=== PATIENT | male | born 1990 | race Hispanic/Latino ===

== ENCOUNTER 2017-10-19 20:04 | Emergency (ER) | payer SELFPAY ==
[2017-10-19] MEDS ORDERED: Ketorolac Tromethamine 30 MG/ML VIAL ONE (20:13)
--- NOTE | 2017-10-19 20:48 | RAD ---
THREE VIEWS LEFT SHOULDER: 10/19/17 HISTORY: Left shoulder pain. FINDINGS: There is a curvilinear osseous density seen inferior to the left glenoid rim. Unsure if this is relat ed to a small osteophyte or avulsion type injury. There is otherwise no evidence of a fracture or di slocation. The coracoclavicular and acromioclavicular distances are within normal limits. IMPRESSION: Curvilinear osseous density inferior to the left glenoid which may represent either a tiny osseous ex crescence or possibly secondary to an avulsion injury of indeterminate age. This cannot be further de termined based on this exam. There is no evidence of a dislocation or other osseous abnormality. POS: [facility]
== END 2017-10-19 20:52 | disposition home or self-care (01) ==
LOC: ERS 20:04
DX: S42.142A Displaced fracture of glenoid cavity of scapula, left shoulder, initial encounter for closed fracture (principal); F17.210 Nicotine dependence, cigarettes, uncomplicated; W19.XXXA Unspecified fall, initial encounter; Y92.69 Other specified industrial and construction area as the place of occurrence of the external cause; Y99.0 Civilian activity done for income or pay
CPT/HCPCS: 96372; J1885

== ENCOUNTER 2018-06-05 15:32 | Emergency (ER) | payer SELFPAY ==
[2018-06-05] MEDS ORDERED: Lidocaine 1% (PF) 30 ML VIAL ONE (15:50)
[2018-06-05] MEDS ORDERED: Fentanyl 100 MCG/2 ML VIAL ONE ×2 (15:50→16:22)
[2018-06-05] MEDS ORDERED: Ketorolac Tromethamine 30 MG/ML VIAL ONE (15:50)
--- NOTE | 2018-06-05 16:14 | RAD ---
RADIOGRAPH CHEST 1 VIEW: HISTORY: 28-year-old male with acute chest pain. FINDINGS: There are no air space densities, pulmonary edema, pneumothorax, or cardiomegaly. The lateral costop hrenic angles are sharp. There is anterior left shoulder dislocation. IMPRESSION: 1. No acute cardiopulmonary findings. 2. Acute, traumatic, anterior left shoulder dislocation of the glenohumeral joint. lazaro [] POS: [facility]
[2018-06-05] MEDS ORDERED: PROPOFOL 20 ML ONE (16:22)
--- NOTE | 2018-06-05 18:30 | RAD ---
RADIOGRAPH CHEST 1 VIEW: DATE: 06-05-18 TIME: 5:23 p.m. HISTORY: 28-year-old male with acute left shoulder dislocation. COMPARISON: 06-05-18 at 4:01 p.m. FINDINGS: There are no air space densities, pulmonary edema, pneumothorax, or cardiomegaly. The lateral costop hrenic angles are sharp. The left glenohumeral joint is now located. IMPRESSION: 1. No acute cardiopulmonary findings. 2. Successful reduction of the acute, traumatic, left shoulder anterior dislocation. lazaro POS: [facility]
== END 2018-06-05 18:49 | disposition home or self-care (01) ==
LOC: ERS 15:32
DX: S43.015A Anterior dislocation of left humerus, initial encounter (principal); F17.210 Nicotine dependence, cigarettes, uncomplicated; W18.30XA Fall on same level, unspecified, initial encounter
CPT/HCPCS: 23650; 71045; 96361; 96374; 99152; 99153; J1885; J2001; J2704; J3010

== ENCOUNTER 2019-06-25 05:23 | Emergency (ER) | payer SELFPAY ==
[2019-06-25] MEDS ORDERED: hydrOXYzine Pamoate 25 mg Capsule ONE (06:14)
--- NOTE | 2019-06-25 07:59 | RAD ---
RADIOGRAPH CHEST 2 VIEWS: DATE: 06/25/2019 HISTORY: 29-year-old male with dyspnea FINDINGS: The lungs are clear. The cardiomediastinal silhouette and hilar shadows appear normal. There is no pl eural effusion or pneumothorax. No osseous abnormality is identified. IMPRESSION: Normal
== END 2019-06-25 06:40 | disposition home or self-care (01) ==
LOC: ERS 05:23
DX: F41.9 Anxiety disorder, unspecified (principal); F17.210 Nicotine dependence, cigarettes, uncomplicated
CPT/HCPCS: 71046; 93005; Q0177

== ENCOUNTER 2019-06-25 12:06 | Observation (INO) | payer SELFPAY ==
--- NOTE | 2019-06-25 12:52 | RAD ---
Portable chest: HISTORY: Dizziness COMPARISON: none FINDINGS: Lung olivares are clear. Heart and mediastinum appear unremarkable. Vascularity is normal. Visualized osseous structures unremarkable. IMPRESSION: No acute finding
[2019-06-25 13:00] LABS: #Eosinphils 0.2 thou/uL (0.0-0.7); #Lymphocytes 1.7 thou/uL (1.20-3.40); #Neutrophils 5.6 thou/uL (1.40-6.50); %Basophils 0.4 % (0.0-1.0); %Lymphocytes 19.7 % (21.0-51.0); %Monocytes 11.9 % (0.0-10.0); Hemoglobin 16.4 g/dL (14.0-18.0); Mean Corpuscular HGB CONC 34.7 g/dL (32.0-36.0); Mean Corpuscular Hemoglobin 31.5 pg (27.0-31.0); Mean Corpuscular Volume 90.6 fL (78.0-98.0); Mean Platelet Volume 7.7 fL (7.4-10.4); Platelet Count 231 thou/uL (130-400); RBC Distribution Width 12.1 % (11.5-14.5); Red Blood Cell (RBC) Count 5.21 mill/uL (4.70-6.10); White Blood Cell (WBC) Count 8.5 thou/uL (4.8-10.8)
[2019-06-25 13:12] LABS: Acetaminophen Less than 6.0 mcg/mL (10.0-30.0); Alcohol Less than 10 mg/dL (Less than 10); Salicylate Less than 8.0 mg/dL (15.0-30.0)
[2019-06-25 13:13] LABS: ALT (SGPT) 12 U/L (8-55); AST (SGOT) 13 U/L (5-34); Albumin 4.5 g/dL (3.5-5.0); Alkaline Phosphatase 98 U/L (40-110); Anion Gap 14 mmol/L (10-20); BUN (Urea Nitrogen) 8 mg/dL (8.9-20.6); Bilirubin, Total 0.7 mg/dL (0.2-1.2); Calc. Creatinine Clearance 0 mL/min (70-130); Calcium 9.5 mg/dL (7.8-10.44); Carbon Dioxide 22 mmol/L (22-29); Chloride 103 mmol/L (98-107); Estimated GFR-MDRD Greater than 90; Globulin 2.8 g/dL (2.4-3.5); Glucose 111 mg/dL (70-105); Potassium 3.8 mmol/L (3.5-5.1); Protein, Total 7.3 g/dL (6.0-8.3); Sodium 135 mmol/L (136-145)
[2019-06-25 13:35] LABS: CKMB 0.8 ng/mL (0-6.6)
[2019-06-25] MEDS ORDERED: Aspirin Chewable 81 MG TAB ONE (13:47)
[2019-06-25] MEDS ORDERED: hydrOXYzine Pamoate 25 mg Capsule ONE (13:48)
[2019-06-25 14:18] LABS: Amphetamine Detected (NotDetected); Barbiturates Screen Not Detected (NotDetected); Benzodiazepine Screen Not Detected (NotDetected); Cocaine Metabolite Screen Detected (NotDetected); Medtox Control Line Valid? VALID (VALID); Medtox Reader # READER 1; Methadone Not Detected (NotDetected); Methamphetamine Detected (NotDetected); Opiate Screen Not Detected (NotDetected); Oxycodone Screen Not Detected (NotDetected); Phencyclidine (PCP) Not Detected (NotDetected); THC/Cannabinoid Screen Detected (NotDetected); Tricyclic Screen Not Detected (NotDetected)
[2019-06-25 16:27] LABS: Troponin I Less than 0.010 ng/mL (< 0.028)
[2019-06-25 18:54] LABS: Troponin I Less than 0.010 ng/mL (< 0.028)
[2019-06-25 20:23] VITALS: BMI 32.3
[2019-06-25] MEDS ORDERED: Ondansetron PF 4 MG/2 ML Vial IVP PRN (20:42)
[2019-06-25] MEDS ORDERED: Ondansetron ODT 4 MG TAB SL PRN (20:42)
[2019-06-25] MEDS ORDERED: Acetaminophen 325 MG TAB PO PRN (20:42)
[2019-06-26 07:56] VITALS: TEMP 97.6
[2019-06-26] MEDS ORDERED: FLU VACC QS2019-20(6MOS UP)/PF 60 MCG/0.5 ML SYRINGE IM ONE (09:00)
[2019-06-26] MEDS ORDERED: Acetaminophen 325 MG TAB PO PRN (09:53)
[2019-06-26 10:48] LABS: #Eosinphils 0.4 thou/uL (0.0-0.7); #Lymphocytes 2.5 thou/uL (1.20-3.40); #Monocytes 0.8 thou/uL (0.11-0.59); %Basophils 0.3 % (0.0-1.0); %Eosinophils 5.6 % (0.0-10.0); %Lymphocytes 32.6 % (21.0-51.0); %Monocytes 10.5 % (0.0-10.0); %Neutrophils 51.1 % (42.0-75.0); Hemoglobin 16.4 g/dL (14.0-18.0); Mean Corpuscular HGB CONC 33.4 g/dL (32.0-36.0); Mean Corpuscular Volume 92.8 fL (78.0-98.0); Mean Platelet Volume 7.8 fL (7.4-10.4); Platelet Count 221 thou/uL (130-400); RBC Distribution Width 12.3 % (11.5-14.5); Red Blood Cell (RBC) Count 5.28 mill/uL (4.70-6.10); White Blood Cell (WBC) Count 7.8 thou/uL (4.8-10.8)
[2019-06-26 11:07] LABS: Anion Gap 13 mmol/L (10-20); BUN (Urea Nitrogen) 13 mg/dL (8.9-20.6); Calc. Creatinine Clearance 150 mL/min (70-130); Calcium 9.4 mg/dL (7.8-10.44); Carbon Dioxide 23 mmol/L (22-29); Chloride 104 mmol/L (98-107); Estimated GFR-MDRD Greater than 90; Glucose 80 mg/dL (70-105); Sodium 136 mmol/L (136-145)
[2019-06-26 12:08] VITALS: BP 107/62
--- NOTE | 2019-06-26 14:33 | SS ---
DATE OF ADMISSION: 06/25/2019 DATE OF DISCHARGE: 06/26/2019 PRIMARY CARE PHYSICIAN: None. PROCEDURES: 1. The patient had a chest x-ray, showed no acute finding. 2. Echocardiogram showed an EF of 55% to 60%. Left ventricular size is normal. Normal heart size, left atrium. Structurally normal mitral valve. Structurally normal aortic valve. Mild tricuspid regurgitation. SHORT STAY SUMMARY: Mr. 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 The patient reports inhaling crack cocaine through bath salts, given to him by his brother yesterday morning. The patient was given a prescription for Atarax, but has not been able to take any yet. Toxicology was positive for amphetamines, methamphetamines, cocaine, and cannabinoids. Initial troponin was 0.051 and then the subsequent two were indeterminate. Chemistry today is unremarkable. The patient denied chest pain or shortness of breath today. Vital signs have remained stable. The patient was informed of plan of the echocardiogram and if negative, then the patient would most likely be discharged home, was instructed to follow up with primary care doctor within the next week. If chest pain persisted, the patient may be a candidate for a stress test, but he would have to have a negative drug screen in most instances. The patient's echocardiogram with an EF of 55% to 60% and was subsequently discharged home. ALLERGIES: NONE. HOME MEDICATIONS: None. DISPOSITION: Home. DISPOSITION CONDITION: Stable. FOLLOWUP INSTRUCTIONS: Should follow up with primary care within the next week. Given information for the [facility] if needed. All questions were answered. Job ID: [id number]
[2019-06-26] MEDS ORDERED: Famotidine 20 MG TAB PO SCH (21:00)
[2019-06-27] MEDS ORDERED: Enoxaparin Sodium 40 MG/0.4 ML SYRINGE SC SCH (09:00)
== END 2019-06-26 14:35 | disposition home or self-care (01) ==
LOC: ERS 12:06 → 2SW 20:20
PROVIDERS: ADMIT Internal Medicine; ATTEND Internal Medicine
DX: R07.9 Chest pain, unspecified (principal); R42 Dizziness and giddiness; F41.9 Anxiety disorder, unspecified; F17.210 Nicotine dependence, cigarettes, uncomplicated; F12.10 Cannabis abuse, uncomplicated; F15.10 Other stimulant abuse, uncomplicated; R79.89 Other specified abnormal findings of blood chemistry
CPT/HCPCS: 36415; 71045; 80048; 80053; 80306; 80307; 82553; 84484; 85025; 90471; 90686; 90732; 93005; 93306; 94760; G0008; G0009; G0378; Q0177

== ENCOUNTER 2020-01-26 09:02 | Observation (INO) | payer SELFPAY ==
[2020-01-26 09:59] LABS: #Eosinphils 0.2 thou/uL (0.0-0.7); #Lymphocytes 1.7 thou/uL (1.20-3.40); #Monocytes 0.7 thou/uL (0.11-0.59); #Neutrophils 7.3 thou/uL (1.40-6.50); %Basophils 0.5 % (0.0-1.0); %Eosinophils 1.6 % (0.0-10.0); %Lymphocytes 17.5 % (21.0-51.0); %Monocytes 6.7 % (0.0-10.0); %Neutrophils 73.8 % (42.0-75.0); Hemoglobin 16.9 g/dL (14.0-18.0); Mean Corpuscular HGB CONC 32.8 g/dL (32.0-36.0); Mean Corpuscular Hemoglobin 30.3 pg (27.0-31.0); Mean Corpuscular Volume 92.2 fL (78.0-98.0); Platelet Count 248 thou/uL (130-400); RBC Distribution Width 12.1 % (11.5-14.5); Red Blood Cell (RBC) Count 5.57 mill/uL (4.70-6.10); White Blood Cell (WBC) Count 9.9 thou/uL (4.8-10.8)
--- NOTE | 2020-01-26 10:06 | RAD ---
SINGLE VIEW CHEST: Date: 01/26/2020 COMPARISON: 06/25/2019. HISTORY: Generalized weakness and headache for 2-3 days. FINDINGS: Single view of the chest shows a normal sized cardiomediastinal silhouette. There is no evidence of c onsolidation, mass, or pleural effusion. The bones are unremarkable. IMPRESSION: No evidence of acute cardiopulmonary disease. POS: [facility]
[2020-01-26] MEDS ORDERED: diphenhydrAMINE 50 MG/ML VIAL ONE (10:11)
[2020-01-26] MEDS ORDERED: Metoclopramide HCl 10 MG/2 ML VIAL ONE (10:11)
[2020-01-26] MEDS ORDERED: Ketorolac Tromethamine 30 MG/ML VIAL ONE (10:11)
[2020-01-26 10:22] LABS: ALT (SGPT) 15 U/L (8-55); AST (SGOT) 16 U/L (5-34); Albumin 4.6 g/dL (3.5-5.0); Alkaline Phosphatase 91 U/L (40-110); Anion Gap 15 mmol/L (10-20); BUN (Urea Nitrogen) 12 mg/dL (8.9-20.6); Bilirubin, Total 0.8 mg/dL (0.2-1.2); CK (CPK) 130 U/L (30-200); Calc. Creatinine Clearance 0 mL/min (70-130); Calcium 9.5 mg/dL (7.8-10.44); Carbon Dioxide 23 mmol/L (22-29); Chloride 105 mmol/L (98-107); Estimated GFR-MDRD Greater than 90; Globulin 2.9 g/dL (2.4-3.5); Glucose 107 mg/dL (70-105); Protein, Total 7.5 g/dL (6.0-8.3); Sodium 139 mmol/L (136-145)
[2020-01-26 10:43] LABS: CKMB 1.4 ng/mL (0-6.6)
[2020-01-26] MEDS ORDERED: Aspirin Chewable 81 MG TAB ONE (11:22)
[2020-01-26] MEDS ORDERED: Acetaminophen 325 MG TAB PO PRN (11:34)
[2020-01-26 11:39] LABS: Acetaminophen Less than 6.0 mcg/mL (10.0-30.0); Alcohol Less than 10 mg/dL (Less than 10); Salicylate Less than 8.0 mg/dL (15.0-30.0)
[2020-01-26 13:15] LABS: Amphetamine Detected (NotDetected); Barbiturates Screen Not Detected (NotDetected); Benzodiazepine Screen Not Detected (NotDetected); Cocaine Metabolite Screen Detected (NotDetected); Medtox Control Line Valid? VALID (VALID); Medtox Reader # READER 4; Methadone Not Detected (NotDetected); Methamphetamine Detected (NotDetected); Opiate Screen Not Detected (NotDetected); Oxycodone Screen Not Detected (NotDetected); Phencyclidine (PCP) Not Detected (NotDetected); THC/Cannabinoid Screen Detected (NotDetected); Tricyclic Screen Not Detected (NotDetected)
[2020-01-26 13:30] LABS: Troponin I 0.032 ng/mL (< 0.028)
[2020-01-26 16:40] LABS: Troponin I 0.035 ng/mL (< 0.028)
[2020-01-26 17:17] VITALS: BMI 36.1
[2020-01-26 17:20] VITALS: TEMP 98.8
[2020-01-26 17:21] VITALS: BP 124/73
[2020-01-26 19:40] LABS: SARS-CoV-2 MS2 Positive; SARS-CoV-2 N Gene Negative; SARS-CoV-2 S Gene Negative; SARS-CoV-2 orf1ab Negative
--- NOTE | 2020-01-27 00:57 | HP ---
CHIEF COMPLAINT: Dizziness and shortness of breath. HISTORY OF PRESENT ILLNESS: The patient is a 28-year-old male with history of anxiety and illicit drug use, who presented to the emergency department with complaints of dizziness and shortness of breath that started earlier today in addition to intermittent nausea, headache, and chest pain for the past 3 weeks. The patient stated that his symptoms are not there all the time and are not associated with certain activity. His chest pain is sharp and located in the left side that he rates as 5/10. The patient denies any fever or cough. In the ER, the patient's vitals were noted to be stable and his laboratory studies were unremarkable except for slightly elevated troponin level at 0.03. We were asked to evaluate this patient for further management. PAST MEDICAL HISTORY: As noted above. PAST SURGICAL HISTORY: None. SOCIAL HISTORY: The patient has history of marijuana and methamphetamine use. FAMILY HISTORY: Noncontributory. ALLERGIES: NO KNOWN ALLERGIES. PHYSICAL EXAMINATION: VITAL SIGNS: Within normal limits. HEENT: Head is normocephalic and atraumatic. Extraocular muscles are intact. NECK: Supple. CARDIOVASCULAR EXAMINATION: Revealed normal S1, S2. No murmurs, rubs, or gallops. Regular rate and rhythm. CHEST: Auscultation revealed clear lung olivares bilaterally. ABDOMEN: Soft, nontender, nondistended. NEUROLOGICAL EXAMINATION: Revealed normal cranial nerves 2 through 12 and normal sensory and motor function. ASSESSMENT: 1. Dyspnea and chest pain. 2. Cannabis abuse. 3. Cocaine abuse. 4. Methamphetamine abuse. 5. Anxiety. PLAN: The patient presented with vague symptoms and slightly elevated troponin level that did not trend up on further measurements. This could be related to his drug abuse, especially cocaine. The patient will be monitored overnight in the telemetry unit. I will start him on low-dose aspirin. We will avoid beta-blockers due to recent cocaine use. If his symptoms do not persist, he can probably be discharged home safely tomorrow. Coronavirus test was sent in the ER. Job ID: [id number]
[2020-01-27] MEDS ORDERED: Aspirin 81 mg Enteric Coated Tablet PO SCH (09:00)
[2020-01-27] MEDS ORDERED: Enoxaparin Sodium 40 MG/0.4 ML SYRINGE SC SCH (09:00)
--- NOTE | 2020-01-31 14:28 | DIS ---
DATE OF ADMISSION: 01/26/2020 DATE OF DISCHARGE: 01/26/2020 DISCHARGE DIAGNOSES: 1. Chest pain. ACS has not been ruled out. 2. Dyspnea. 3. Cannabis abuse. 4. Cocaine abuse. 5. Methamphetamine abuse. 6. Anxiety disorder. DISCHARGE MEDICATIONS: No new discharge medications. HISTORY OF PRESENT ILLNESS AND HOSPITAL COURSE: The patient is a 28-year-old male with past medical history of anxiety and illicit drug use, who presented to the emergency department with dizziness and shortness of breath started on the day prior to presentation and was associated with nausea and headache. The patient stated that the chest pain is sharp, located in the left side, and did not radiate anywhere else. In the ER, vitals were stable and laboratory studies revealed slightly elevated troponin of 0.03. The patient was placed in observation. His symptoms were vague and troponin levels which were slightly elevated initially did not trend up. Chest pain could likely be related to drug abuse, especially cocaine. He was started on low-dose aspirin and was observed overnight. The patient left A on the same day he was admitted. Job ID: [id number]
== END 2020-01-26 18:19 | disposition left against medical advice (07) ==
LOC: ERS 09:02 → 2SW 11:44
PROVIDERS: ADMIT Internal Medicine; ATTEND Internal Medicine
DX: R07.9 Chest pain, unspecified (principal); R42 Dizziness and giddiness; R06.02 Shortness of breath; F19.10 Other psychoactive substance abuse, uncomplicated; F17.210 Nicotine dependence, cigarettes, uncomplicated; F41.9 Anxiety disorder, unspecified
CPT/HCPCS: 36415; 71045; 80053; 80306; 80307; 82550; 82553; 84484; 85025; 87635; 93005; 94760; 96365; 96366; 96375; G0378; J1200; J1885; J2765; U0003

== ENCOUNTER 2020-02-12 06:55 | Emergency (ER) | payer SELFPAY ==
[2020-02-12 07:48] LABS: #Eosinphils 0.3 thou/uL (0.0-0.7); #Lymphocytes 2.1 thou/uL (1.20-3.40); #Monocytes 0.9 thou/uL (0.11-0.59); #Neutrophils 6.4 thou/uL (1.40-6.50); %Basophils 0.5 % (0.0-1.0); %Eosinophils 3.5 % (0.0-10.0); %Lymphocytes 21.5 % (21.0-51.0); %Neutrophils 65.5 % (42.0-75.0); Hemoglobin 16.1 g/dL (14.0-18.0); Mean Corpuscular HGB CONC 34.6 g/dL (32.0-36.0); Mean Corpuscular Hemoglobin 31.3 pg (27.0-31.0); Mean Corpuscular Volume 90.5 fL (78.0-98.0); Mean Platelet Volume 7.8 fL (7.4-10.4); Platelet Count 236 thou/uL (130-400); RBC Distribution Width 12.1 % (11.5-14.5); Red Blood Cell (RBC) Count 5.15 mill/uL (4.70-6.10); White Blood Cell (WBC) Count 9.8 thou/uL (4.8-10.8)
[2020-02-12 08:21] LABS: ALT (SGPT) 12 U/L (8-55); AST (SGOT) 10 U/L (5-34); Albumin 4.1 g/dL (3.5-5.0); Alkaline Phosphatase 91 U/L (40-110); Anion Gap 14 mmol/L (10-20); Bilirubin, Total 0.8 mg/dL (0.2-1.2); Calc. Creatinine Clearance 0 mL/min (70-130); Calcium 8.6 mg/dL (7.8-10.44); Carbon Dioxide 21 mmol/L (22-29); Chloride 106 mmol/L (98-107); Globulin 2.8 g/dL (2.4-3.5); Glucose 110 mg/dL (70-105); Potassium 3.7 mmol/L (3.5-5.1); Protein, Total 6.9 g/dL (6.0-8.3); Sodium 137 mmol/L (136-145)
[2020-02-12 08:31] LABS: Bilirubin Negative (Negative); Blood, Urine Negative (Negative); Clarity Clear (Clear); Glucose, Urine (Dipstick) Normal (Negative); Leukocyte Negative Leu/uL (Negative); Nitrite Negative (Negative); Protein, Urine (Dipstick) Negative (Neg-Trace); Urobilinogen Normal mg/dL (Less than 2)
[2020-02-12 08:53] LABS: Medtox Reader # READER 1
[2020-02-12 08:54] LABS: Amphetamine Detected (NotDetected); Barbiturates Screen Not Detected (NotDetected); Benzodiazepine Screen Not Detected (NotDetected); Cocaine Metabolite Screen Detected (NotDetected); Medtox Control Line Valid? VALID (VALID); Methadone Not Detected (NotDetected); Methamphetamine Detected (NotDetected); Opiate Screen Detected (NotDetected); Oxycodone Screen Not Detected (NotDetected); Phencyclidine (PCP) Not Detected (NotDetected); THC/Cannabinoid Screen Detected (NotDetected); Tricyclic Screen Not Detected (NotDetected)
[2020-02-12 10:27] LABS: Troponin I 0.033 ng/mL (< 0.028)
[2020-02-12 11:59] LABS: BUN (Urea Nitrogen) 8 mg/dL (8.9-20.6)
[2020-02-12 12:00] LABS: Estimated GFR-MDRD Greater than 90
--- NOTE | 2020-02-12 12:01 | RAD ---
PORTABLE CHEST: HISTORY: Epigastric pain. Syncope. COMPARISON: 01/26/2020 study. FINDINGS: Heart size and mediastinum are within normal limits. The lungs are clear of infiltrates. There are no bony findings. IMPRESSION: No active intrathoracic disease. POS: [facility]
--- NOTE | 2020-02-12 12:54 | CT ---
CT ANGIO OF CHEST PERFORMED WITH INTRAVENOUS CONTRAST ENHANCEMENT WITH 3D RECONSTRUCTIONS: HISTORY: Syncopal episode. FINDINGS: The lungs are clear of any infiltrative process. No pulmonary nodules or pleural effusions are ident ified. The thoracic aorta is normal in caliber. No significant mediastinal or hilar adenopathy. There is good pulmonary artery opacification, there is no CT evidence for pulmonary embolus. Visualized liver parenchyma shows no focal findings. Right and left adrenal glands and visualized po rtions of the kidneys appear unremarkable. IMPRESSION: No CT evidence for pulmonary embolus. POS: [facility]
[2020-02-12] MEDS ORDERED: Iopamidol-370 76% 500 ML 1 ML ONE (15:34)
== END 2020-02-12 11:10 | disposition home or self-care (01) ==
LOC: ERS 06:55
DX: R11.0 Nausea (principal); R53.1 Weakness; F41.9 Anxiety disorder, unspecified; F17.210 Nicotine dependence, cigarettes, uncomplicated; R42 Dizziness and giddiness; R10.13 Epigastric pain
CPT/HCPCS: 36415; 71045; 71275; 80053; 80306; 81003; 83690; 84484; 85025; 85379; 93005; Q9967

== ENCOUNTER 2020-03-25 19:57 | Emergency (ER) | payer OTHER, SELFPAY ==
[2020-03-26 14:43] LABS: SARS-CoV-2 MS2 Positive; SARS-CoV-2 N Gene Negative; SARS-CoV-2 S Gene Negative; SARS-CoV-2 orf1ab Negative
== END 2020-03-25 20:36 | disposition home or self-care (01) ==
LOC: ERS 19:57
DX: J02.9 Acute pharyngitis, unspecified (principal); R06.02 Shortness of breath; R05 Cough; Z20.828 Contact with and (suspected) exposure to other viral communicable diseases; F41.9 Anxiety disorder, unspecified; F17.210 Nicotine dependence, cigarettes, uncomplicated
CPT/HCPCS: 87635; 99284; U0003

== ENCOUNTER 2020-07-08 04:26 | Emergency (ER) | payer SELFPAY ==
[2020-07-08] MEDS ORDERED: Ondansetron ODT 8 MG TAB ONE (04:46)
== END 2020-07-08 05:31 | disposition home or self-care (01) ==
LOC: ERS 04:26
DX: R11.0 Nausea (principal); F19.10 Other psychoactive substance abuse, uncomplicated; F17.210 Nicotine dependence, cigarettes, uncomplicated
CPT/HCPCS: 36416; 93005; Q0162

== ENCOUNTER 2020-10-14 21:40 | Emergency (ER) | payer SELFPAY ==
[2020-10-14 22:06] LABS: #Eosinphils 0.1 thou/uL (0.0-0.7); #Lymphocytes 1.8 thou/uL (1.20-3.40); #Monocytes 0.7 thou/uL (0.11-0.59); %Basophils 0.2 % (0.0-1.0); %Eosinophils 0.9 % (0.0-10.0); %Lymphocytes 18.4 % (21.0-51.0); %Monocytes 7.3 % (0.0-10.0); %Neutrophils 73.2 % (42.0-75.0); Hemoglobin 17.5 g/dL (14.0-18.0); Mean Corpuscular HGB CONC 33.2 g/dL (32.0-36.0); Mean Corpuscular Hemoglobin 30.1 pg (27.0-31.0); Mean Corpuscular Volume 90.7 fL (78.0-98.0); Mean Platelet Volume 8.1 fL (7.4-10.4); Platelet Count 256 thou/uL (130-400); RBC Distribution Width 11.7 % (11.5-14.5); Red Blood Cell (RBC) Count 5.81 mill/uL (4.70-6.10); White Blood Cell (WBC) Count 9.5 thou/uL (4.8-10.8)
[2020-10-14 22:33] LABS: ALT (SGPT) 20 U/L (8-55); Albumin 4.8 g/dL (3.5-5.0); Alkaline Phosphatase 101 U/L (40-110); Anion Gap 15 mmol/L (10-20); BUN (Urea Nitrogen) 20 mg/dL (8.9-20.6); Bilirubin, Total 1.3 mg/dL (0.2-1.2); Calc. Creatinine Clearance 0 mL/min (70-130); Calcium 9.7 mg/dL (7.8-10.44); Carbon Dioxide 23 mmol/L (22-29); Chloride 103 mmol/L (98-107); Globulin 3.4 g/dL (2.4-3.5); Glucose 111 mg/dL (70-105); Potassium 4.4 mmol/L (3.5-5.1); Protein, Total 8.2 g/dL (6.0-8.3); Sodium 137 mmol/L (136-145)
[2020-10-14 22:54] LABS: AST (SGOT) 21 U/L (5-34)
[2020-10-14 23:15] LABS: Acetaminophen Less than 6.0 mcg/mL (10.0-30.0); Alcohol Less than 10 mg/dL (Less than 10); Salicylate Less than 8.0 mg/dL (15.0-30.0)
[2020-10-15 00:36] LABS: Medtox Reader # READER 4
[2020-10-15 00:37] LABS: Phencyclidine (PCP) Not Detected (NotDetected); THC/Cannabinoid Screen Detected (NotDetected)
[2020-10-15 00:38] LABS: Amphetamine Detected (NotDetected); Barbiturates Screen Not Detected (NotDetected); Benzodiazepine Screen Not Detected (NotDetected); Cocaine Metabolite Screen Detected (NotDetected); Medtox Control Line Valid? VALID (VALID); Methadone Not Detected (NotDetected); Methamphetamine Detected (NotDetected); Opiate Screen Not Detected (NotDetected); Oxycodone Screen Not Detected (NotDetected); Tricyclic Screen Not Detected (NotDetected)
== END 2020-10-15 01:23 | disposition home or self-care (01) ==
LOC: ERS 21:40
DX: F14.10 Cocaine abuse, uncomplicated (principal); F15.10 Other stimulant abuse, uncomplicated; F17.210 Nicotine dependence, cigarettes, uncomplicated
CPT/HCPCS: 36415; 80053; 80306; 80307; 84484; 85025; 93005

== ENCOUNTER 2020-11-11 17:58 | Emergency (ER) | payer SELFPAY ==
[2020-11-11 18:49] LABS: #Eosinphils 0.2 thou/uL (0.0-0.7); #Lymphocytes 1.8 thou/uL (1.20-3.40); #Monocytes 0.6 thou/uL (0.11-0.59); #Neutrophils 7.6 thou/uL (1.40-6.50); %Basophils 0.3 % (0.0-1.0); %Eosinophils 1.5 % (0.0-10.0); %Lymphocytes 17.8 % (21.0-51.0); %Monocytes 5.6 % (0.0-10.0); %Neutrophils 74.7 % (42.0-75.0); Mean Corpuscular HGB CONC 34.2 g/dL (32.0-36.0); Mean Corpuscular Hemoglobin 31.4 pg (27.0-31.0); Mean Corpuscular Volume 91.6 fL (78.0-98.0); Mean Platelet Volume 8.5 fL (7.4-10.4); Platelet Count 239 thou/uL (130-400); Red Blood Cell (RBC) Count 5.09 mill/uL (4.70-6.10); White Blood Cell (WBC) Count 10.2 thou/uL (4.8-10.8)
[2020-11-11 19:12] LABS: ALT (SGPT) 14 U/L (8-55); AST (SGOT) 14 U/L (5-34); Acetaminophen Less than 6.0 mcg/mL (10.0-30.0); Albumin 4.3 g/dL (3.5-5.0); Alcohol Less than 10 mg/dL (Less than 10); Alkaline Phosphatase 350 U/L (40-110); Anion Gap 18 mmol/L (10-20); BUN (Urea Nitrogen) 8 mg/dL (8.9-20.6); Bilirubin, Total 0.8 mg/dL (0.2-1.2); CK (CPK) 65 U/L (30-200); Calc. Creatinine Clearance 0 mL/min (70-130); Calcium 9.3 mg/dL (7.8-10.44); Carbon Dioxide 19 mmol/L (22-29); Chloride 105 mmol/L (98-107); Glucose 107 mg/dL (70-105); Potassium 4.1 mmol/L (3.5-5.1); Protein, Total 7.3 g/dL (6.0-8.3); Salicylate Less than 8.0 mg/dL (15.0-30.0); Sodium 138 mmol/L (136-145)
[2020-11-11 19:20] LABS: Bacteria/HPF None Seen HPF (None Seen); Bilirubin Negative (Negative); Blood, Urine Negative (Negative); Clarity Clear (Clear); Glucose, Urine (Dipstick) Normal (Negative); Ketone, Urine Trace mg/dL (Negative); Leukocyte Negative Leu/uL (Negative); Nitrite Negative (Negative); Protein, Urine (Dipstick) 50 mg/dL (Neg-Trace); RBC/HPF 0-3 HPF (0-3); Specific Gravity, Urine 1.037 (1.002-1.036); Squamous Epithelial 0-3 HPF (0-3); Urobilinogen 3 mg/dL (Less than 2); WBC/HPF 0-3 HPF (0-3); pH, Urine 5.5 (5.0-9.0)
[2020-11-11 19:28] LABS: Medtox Reader # READER 1
[2020-11-11 19:30] LABS: Cocaine Metabolite Screen Detected (NotDetected); Phencyclidine (PCP) Not Detected (NotDetected); THC/Cannabinoid Screen Detected (NotDetected)
[2020-11-11 19:31] LABS: Amphetamine Detected (NotDetected); Barbiturates Screen Not Detected (NotDetected); Benzodiazepine Screen Not Detected (NotDetected); Medtox Control Line Valid? VALID (VALID); Methadone Not Detected (NotDetected); Methamphetamine Detected (NotDetected); Opiate Screen Not Detected (NotDetected); Oxycodone Screen Not Detected (NotDetected); Tricyclic Screen Not Detected (NotDetected)
== END 2020-11-11 22:55 | disposition home or self-care (01) ==
LOC: ERS 17:58
DX: E86.0 Dehydration (principal); F15.10 Other stimulant abuse, uncomplicated; F14.10 Cocaine abuse, uncomplicated; F12.10 Cannabis abuse, uncomplicated; F17.200 Nicotine dependence, unspecified, uncomplicated
CPT/HCPCS: 80053; 80306; 80307; 81003; 81015; 82550; 85025; 99284